=== PATIENT | female | born 1950 | race Two or more races ===

== ENCOUNTER 2017-07-27 13:25 | Outpatient (CLI) | payer OTHER ==
[2017-07-27 14:27] LABS: Hematocrit 43.3 % (36.0-47.0); Red Blood Cell (RBC) Count 5.12 mill/uL (4.20-5.40)
[2017-07-27 14:34] LABS: Prothrombin Time 23.8 SEC (12.0-14.7)
[2017-07-27 14:54] LABS: Anion Gap 13 mmol/L (10-20); BUN (Urea Nitrogen) 17 mg/dL (9.8-20.1); Calc. Creatinine Clearance 0 mL/min (70-130); Calcium 8.9 mg/dL (7.8-10.44); Carbon Dioxide 25 mmol/L (23-31); Chloride 106 mmol/L (98-107); Estimated GFR-MDRD 73
--- NOTE | 2017-07-27 15:16 | EKG ---
Test Reason : Blood Pressure : / mmHG Vent. Rate : 054 BPM Atrial Rate : 054 BPM P-R Int : 156 ms QRS Dur : 080 ms QT Int : 444 ms P-R-T Axes : 020 -04 030 degrees QTc Int : 421 ms Sinus bradycardia T wave abnormality, consider anterior ischemia Abnormal ECG Confirmed by LUPILLO WING ([id number]) on 07/27/2017 3:16:19 PM Referred By: LAKIA Confirmed By:LUPILLO WING
== END 2017-07-27 13:26 | disposition home or self-care (01) ==
LOC: LABBT 13:25
PROVIDERS: ATTEND Specialist
DX: Z01.818 Encounter for other preprocedural examination (principal); Z51.81 Encounter for therapeutic drug level monitoring; I48.91 Unspecified atrial fibrillation; Z79.01 Long term (current) use of anticoagulants
CPT/HCPCS: 80048; 85027; 85610; 85730; 93005; 93010

== ENCOUNTER 2017-07-30 05:56 | Observation (INO) | payer OTHER ==
[2017-07-27 13:44] VITALS: BMI 28.1
[2017-07-30] MEDS ORDERED: Heparin 10,000 UNITS/1 ML VIAL ONE ×2 (06:56→07:24)
[2017-07-30] MEDS ORDERED: Phenylephrine 10 MG/NS 250 ML 250 ML ONE (07:10)
[2017-07-30] MEDS ORDERED: Fentanyl 100 MCG/2 ML VIAL ONE (07:10)
[2017-07-30] MEDS ORDERED: Promethazine HCl 25 MG/ML VIAL ONE (07:10)
[2017-07-30] MEDS ORDERED: Protamine Sulfate 50 MG/5 ML VIAL ONE (07:24)
[2017-07-30] MEDS ORDERED: Furosemide 40 MG/4 ML VIAL ONE (07:24)
[2017-07-30] MEDS ORDERED: Midazolam HCl 2 mg/2 ml Vial ONE (07:24)
[2017-07-30] MEDS ORDERED: Propofol 200 MG/20 ML VIAL ONE (08:11)
[2017-07-30] MEDS ORDERED: ePHEDrine/0.9% NaCl/PF SYRINGE 50 mg/10 ml ONE (08:11)
[2017-07-30] MEDS ORDERED: Ondansetron HCl/PF 4 MG/2 ML Vial ONE (08:11)
[2017-07-30] MEDS ORDERED: Glycopyrrolate 0.2 MG/ML 5 ML SYRINGE ONE (08:11)
[2017-07-30] MEDS ORDERED: Dexamethasone 20 MG/5 ML VIAL ONE (08:11)
[2017-07-30] MEDS ORDERED: PHENYLEPHRINE-NS 100 MCG/ML 10 ML SYRINGE ONE (08:11)
[2017-07-30] MEDS ORDERED: Isoproterenol 0.2 MG/1 ML AMP ONE (09:57)
[2017-07-30] MEDS ORDERED: Famotidine/PF 20 mg/2ml Vial ONE (10:40)
[2017-07-30] MEDS ORDERED: Silver Sulfadiazine 1% Cream 50 GM JAR TOP PRN (11:34)
[2017-07-30] MEDS ORDERED: Temazepam 15 MG CAP PO PRN (11:34)
[2017-07-30] MEDS ORDERED: Bisacodyl 10 MG SUPP PR PRN (11:34)
[2017-07-30] MEDS ORDERED: Nitroglycerin 0.4 MG TAB (25 Tab Bottle) SL PRN (11:34)
[2017-07-30] MEDS ORDERED: Acetaminophen 325 MG TAB PO PRN (11:34)
[2017-07-30] MEDS ORDERED: Mag-Al 1200 mg/1200 mg/30 ML UDCUP PO PRN (11:34)
[2017-07-30] MEDS ORDERED: diphenhydrAMINE 25 MG CAP PO PRN (11:34)
[2017-07-30] MEDS ORDERED: Ondansetron HCl/PF 4 MG/2 ML Vial IVP PRN (11:34)
[2017-07-30] MEDS ORDERED: Bisacodyl 5 MG TAB PO PRN (11:34)
[2017-07-30] MEDS ORDERED: Acetaminophen 500 MG TAB PO PRN (11:36)
[2017-07-30] MEDS: Sucralfate 1 GM TAB PO SCH ×3 (14:40→20:17)
[2017-07-30] MEDS: traMADol HCl 50 MG TAB PO PRN (15:25)
[2017-07-30] MEDS ORDERED: Morphine 2 MG/ML SYRINGE SLOW IVP PRN (16:07)
[2017-07-30] MEDS ORDERED: Dronedarone HCl 400 MG TAB PO SCH (17:00)
[2017-07-30] MEDS ORDERED: Warfarin Sodium 5 MG TAB PO SCH ×2 (17:00→21:00)
[2017-07-30] MEDS: Dronedarone HCl 400 MG TAB PO SCH (20:12)
[2017-07-30] MEDS ORDERED: Escitalopram Oxalate 10 mg Tablet PO SCH (21:00)
--- NOTE | 2017-07-30 22:33 | CCL ---
PROCEDURE: Ablation for atrial fibrillation. PREOPERATIVE DIAGNOSIS: Paroxysmal atrial fibrillation. PROCEDURE DETAILS: The patient came to the EP lab in the postabsorptive state. Informed consent wa s obtained. A timeout was called. The patient was sedated by a member of the Anesthesia staff. On ce the patient was adequately sedated, the left and right femoral regions were prepped and draped in the usual sterile fashion as was the right internal jugular vein using ultrasound guidance, access was obtained x2 in the right femoral vein and x1 in the left femoral vein as well as in the right ju gular vein. A 10 [place] sheath was placed in the left femoral vein. Two 8 [place] sheaths were plac ed in the right femoral vein and a 7 [place] sheath was placed in the right internal jugular vein. A 20 pole catheter was placed from the right internal jugular catheter with the distal 10 poles advanc ed into the coronary sinus for left atrial pacing and recording. The proximal 10 poles were in the right atrium. Intracardiac ultrasound catheter was advanced from the left femoral vein into the hear t for intraprocedural monitoring and guidance. Following this, the double transseptal was performed by exchanging the two 8 [place] sheaths for a long sheaths and LA multipurpose sheath was utilized a s well as a SL0 sheath. Prior to performing a transseptal puncture, the patient was given a bolus o f heparin. The transseptal puncture was guided by intracardiac ultrasound. A 3 dimensional geometr y was made of the left atrium using the circular mapping catheter and with the Carto system. Potenti als were recorded in all four of the pulmonary veins. Following this, radiofrequency was applied to the antrum of the pulmonary veins anteriorly and posteriorly with care to monitor the esophageal lo cation, a temperature when posterior and keep the catheter moving. Ablation was performed until iso lation of all four pulmonary veins was documented. After this, ablation was initiated in the front end mechanic ior wall in order to ablate the posterior wall. However, this could not be isolated because of esoph ageal temperature concerns. Following this, the patient was given 20 mcg of isuprel for approximate ly 10 minutes and did not have any extra pulmonary vein firing. The right upper pulmonary vein recon nected and required further radiofrequency to be delivery. The catheter was then placed in the left ventricle for LV pacing and recording and along His bundle. Baseline intervals were cycled length 890, CT interval 180, QRS 74, QT 429, AH was 127 and HV was 41 milliseconds. A total RF time was 20 10 seconds or 33-1/2 minutes. Catheters were withdrawn. Protamine was given and hemostasis obtaine d with manual pressure. Patient also given 20 mg of Lasix for diuresis. The patient tolerated the procedure well and was discharged from the EP lab in stable condition. COMPLICATIONS: None acute. PROCEDURE PERFORMED: Ablation for atrial fibrillation which includes three dimensional mapping drug infusion and LV pacing and LA pacing and recording, ablation of pulmonary veins, intracardiac echo, transseptal puncture and EP study. CONCLUSIONS: 1. Paroxysmal atrial fibrillation. 2. Successful radiofrequency ablation for paroxysmal atrial fibrillation. RECOMMENDATIONS: Patient will be at bed rest and she will be watched overnight and will follow up w ith electrophysiology in 6-8 weeks. She will continue on anticoagulant therapy for now.
[2017-07-31 07:18] VITALS: TEMP 98.3
[2017-07-31] MEDS: Sucralfate 1 GM TAB PO SCH ×2 (09:18→12:39)
[2017-07-31] MEDS: Dronedarone HCl 400 MG TAB PO SCH (09:20)
[2017-07-31] MEDS: traMADol HCl 50 MG TAB PO PRN (11:01)
[2017-07-31 11:23] VITALS: BP 104/55
[2017-07-31] MEDS ORDERED: Warfarin Sodium 2.5 MG TAB PO SCH (21:00)
--- NOTE | 2017-08-01 10:03 | DIS ---
DATE OF ADMISSION: 07/30/2017 DATE OF DISCHARGE: 07/31/2017 ADMISSION DIAGNOSES: 1. Paroxysmal atrial fibrillation, previously on Multaq. 2. Oral anticoagulation with warfarin. 3. Status post venous isolation procedure on 07/30/2017. HOSPITAL COURSE: Ms. Luke underwent elective EP procedure as noted above by Dr. Loi Berrios. She tolerated the procedure well. Subsequently, she remains stable. PHYSICAL EXAMINATION: VITAL SIGNS: Blood pressure is 104/55, heart rate 72, respirations 16, temperature 98.3 degrees Fah renheit. GENERAL: Alert and oriented woman, in no apparent distress. NECK: Supple. Jugular veins not distended. CHEST: Coarse with no crackles. CARDIOVASCULAR: Heart sounds are regular to rate and rhythm. No murmur or gallop. ABDOMEN: Benign. Bowel sounds positive. EXTREMITIES: Lower extremities without edema, clubbing, or cyanosis. Pulses are adequate. NEUROLOGIC: Patient is nonfocal. MUSCULOSKELETAL EXAM: No joint swelling or deformities. SKIN: Without rash. DATABASE: The EKG was reviewed, reveals sinus rhythm. Telemetry strips reveal sinus with no recurr ence of atrial fibrillation is documented. INR today is 2.0. ASSESSMENT AND PLAN: Ms. Luke is a pleasant 67-year-old woman who had paroxysmal atrial fibrill ation, underwent pulmonary venous isolation procedure and remained stable on the subsequent day. Sh carlos has minor coughing, but no other signs of true bronchitis. She is told to continue her Coumadin, at previous dose. I prescribed her Carafate for the next 2 weeks and also proton pump inhibitor, Pr otonix 40 mg daily. She has requested to follow up in 6 weeks in our office. Thank you again for allowing me to participate in the care of this patient.
--- NOTE | 2017-08-03 13:15 | EKG ---
Test Reason : PREOP Blood Pressure : / mmHG Vent. Rate : 059 BPM Atrial Rate : 059 BPM P-R Int : 166 ms QRS Dur : 084 ms QT Int : 450 ms P-R-T Axes : 005 -01 010 degrees QTc Int : 445 ms Sinus bradycardia T wave abnormality, consider anterior ischemia Abnormal ECG Confirmed by LUPILLO WING ([id number]) on 08/03/2017 1:15:16 PM Referred By: LAKIA Confirmed By:LUPILLO WING
--- NOTE | 2017-08-03 13:20 | EKG ---
Test Reason : POST EP/ABLATION Blood Pressure : / mmHG Vent. Rate : 086 BPM Atrial Rate : 086 BPM P-R Int : 194 ms QRS Dur : 080 ms QT Int : 386 ms P-R-T Axes : 053 -03 041 degrees QTc Int : 461 ms Normal sinus rhythm Abnormal ECG Confirmed by LUPILLO WING ([id number]) on 08/03/2017 1:20:01 PM Referred By: LAKIA Confirmed By:LUPILLO WING
--- NOTE | 2017-08-03 15:55 | EKG ---
Test Reason : Blood Pressure : / mmHG Vent. Rate : 069 BPM Atrial Rate : 069 BPM P-R Int : 180 ms QRS Dur : 078 ms QT Int : 436 ms P-R-T Axes : 044 036 053 degrees QTc Int : 467 ms Normal sinus rhythm Normal ECG Confirmed by LUPILLO WING ([id number]) on 08/03/2017 3:55:11 PM Referred By: LAKIA Confirmed By:LUPILLO WING
== END 2017-07-31 14:10 | disposition home or self-care (01) ==
LOC: CCL 05:56 → 2SW 11:05
PROVIDERS: ADMIT Specialist; ATTEND Specialist
DX: I48.0 Paroxysmal atrial fibrillation (principal); K21.9 Gastro-esophageal reflux disease without esophagitis; Z98.890 Other specified postprocedural states; Z88.6 Allergy status to analgesic agent; Z91.018 Allergy to other foods; Z88.2 Allergy status to sulfonamides; Z88.5 Allergy status to narcotic agent; Z88.8 Allergy status to other drugs, medicaments and biological substances; Z91.040 Latex allergy status; Z79.01 Long term (current) use of anticoagulants; Z87.891 Personal history of nicotine dependence
CPT/HCPCS: 36415; 76942; 85347; 85610; 93005; 93010; 93613; 93622; 93623; 93656; 93657; 93662; 96374; A4216; C1731; C1759; C1769; G0378; J1100; J1644; J1940; J2250; J2270; J2405; J2550; J2704; J2720; J3010; S0028

== ENCOUNTER 2017-09-15 07:52 | Emergency (ER) | payer OTHER ==
[2017-09-15 08:32] LABS: #Eosinphils 0.1 thou/uL (0.0-0.7); #Lymphocytes 2.1 thou/uL (1.20-3.40); #Monocytes 0.4 thou/uL (0.11-0.59); #Neutrophils 3.2 thou/uL (1.40-6.50); %Basophils 0.8 % (0.0-1.0); %Eosinophils 1.9 % (0.0-10.0); %Lymphocytes 35.8 % (21.0-51.0); %Monocytes 6.6 % (0.0-10.0); Hematocrit 36.5 % (36.0-47.0); Mean Platelet Volume 7.6 fL (7.4-10.4); Red Blood Cell (RBC) Count 4.31 mill/uL (4.20-5.40); White Blood Cell (WBC) Count 5.9 thou/uL (4.8-10.8)
[2017-09-15 08:38] LABS: PTT 38.2 SEC (22.9-36.1)
--- NOTE | 2017-09-15 08:45 | RAD ---
PORTABLE CHEST 1 VIEW: Date: 09/15/17 Time: 0828 hours HISTORY: Chest pain. FINDINGS: Comparison made with exam of 02/12/17. The heart size is normal. The aorta is tortuous. The lungs are well expanded without focal areas of c onsolidation, pneumothorax, or pleural effusions. IMPRESSION: No radiographic evidence of acute cardiopulmonary process. POS: OFF
[2017-09-15 08:51] LABS: ALT (SGPT) 17 U/L (8-55); AST (SGOT) 16 U/L (5-34); Alkaline Phosphatase 119 U/L (40-150); Anion Gap 12 mmol/L (10-20); BUN (Urea Nitrogen) 17 mg/dL (9.8-20.1); Bilirubin, Total 0.3 mg/dL (0.2-1.2); Calc. Creatinine Clearance 0 mL/min (70-130); Calcium 8.7 mg/dL (7.8-10.44); Carbon Dioxide 24 mmol/L (23-31); Chloride 109 mmol/L (98-107); Estimated GFR-MDRD 76; Globulin 3.1 g/dL (2.4-3.5); Protein, Total 6.7 g/dL (6.0-8.3)
[2017-09-15 08:56] LABS: Troponin I Less than 0.010 ng/mL (< 0.028)
[2017-09-15] MEDS ORDERED: Nitroglycerin 0.4 MG TAB (25 Tab Bottle) ONE (09:05)
[2017-09-15 11:23] LABS: Troponin I Less than 0.010 ng/mL (< 0.028)
--- NOTE | 2017-09-19 17:06 | EKG ---
Test Reason : CP Blood Pressure : / mmHG Vent. Rate : 060 BPM Atrial Rate : 060 BPM P-R Int : 190 ms QRS Dur : 080 ms QT Int : 426 ms P-R-T Axes : 041 002 020 degrees QTc Int : 426 ms Normal sinus rhythm Normal ECG Confirmed by MAX MANCINI ([id number]), editor school photograph KAILEE BOLDEN ([id number]) on 09/19/2017 5:06:15 PM Referred By: ADDIS Confirmed By:MAX MANCINI
--- NOTE | 2017-09-19 17:07 | EKG ---
Test Reason : Blood Pressure : / mmHG Vent. Rate : 067 BPM Atrial Rate : 067 BPM P-R Int : 170 ms QRS Dur : 074 ms QT Int : 398 ms P-R-T Axes : 046 004 034 degrees QTc Int : 420 ms Normal sinus rhythm Normal ECG Confirmed by MAX MANCINI ([id number]), editor index KAILEE BOLDEN ([id number]) on 09/19/2017 5:06:59 PM Referred By: Confirmed By:MAX MANCINI
== END 2017-09-15 12:25 | disposition home or self-care (01) ==
LOC: ERS 07:52
DX: R07.9 Chest pain, unspecified (principal); I48.91 Unspecified atrial fibrillation; K21.9 Gastro-esophageal reflux disease without esophagitis; F41.9 Anxiety disorder, unspecified; F32.9 Major depressive disorder, single episode, unspecified; G47.30 Sleep apnea, unspecified; J45.909 Unspecified asthma, uncomplicated; K58.9 Irritable bowel syndrome, unspecified; Z79.01 Long term (current) use of anticoagulants; Z85.51 Personal history of malignant neoplasm of bladder
CPT/HCPCS: 36415; 71010; 80053; 82553; 84484; 85025; 85610; 85730; 93005

== ENCOUNTER 2018-02-18 14:19 | Outpatient (CLI) | payer OTHER ==
--- NOTE | 2018-02-18 15:11 | ULT ---
THYROID ULTRASOUND: COMPARISON: 08/14/17. HISTORY: Thyroid nodule. TECHNIQUE: Multiplanar cobb scale and color Doppler images were obtained in a thyroid ultrasound. FINDINGS: There is a mixed solid/cystic nodule in the right lobe of the thyroid. This currently measures 2.3 x 2.0 x 1.8 cm in size. There is a solid nodule in the left lobe of the thyroid measuring 8 mm in siz e. These nodules are well circumscribed without suspicious calcifications. The thyroid lobes measur e 3.5 and 3.3 cm in length on the right and left, respectively. IMPRESSION: Bilateral thyroid nodules. The largest nodule is seen in the right thyroid lobe and has decreased in size compared to the prior examination. This is a TRADS category 3 lesion. Followup of this nodule at 1, 3, and 5 years is recommended. A 1-year followup has already been performed. POS: [facility]
== END 2018-02-18 14:20 | disposition home or self-care (01) ==
LOC: ULT 14:19
PROVIDERS: ATTEND Specialist
DX: E04.9 Nontoxic goiter, unspecified (principal); E04.2 Nontoxic multinodular goiter
CPT/HCPCS: 76536; 88121

== ENCOUNTER 2018-03-21 19:56 | Emergency (ER) | payer OTHER ==
[2018-03-21] MEDS ORDERED: Ketorolac Tromethamine 30 MG/ML VIAL ONE (21:09)
== END 2018-03-21 21:35 | disposition home or self-care (01) ==
LOC: ERS 19:56
DX: H65.91 Unspecified nonsuppurative otitis media, right ear (principal); F32.9 Major depressive disorder, single episode, unspecified; K58.9 Irritable bowel syndrome, unspecified; K21.9 Gastro-esophageal reflux disease without esophagitis; G47.30 Sleep apnea, unspecified; J45.909 Unspecified asthma, uncomplicated; Z79.82 Long term (current) use of aspirin; Z79.899 Other long term (current) drug therapy; Z85.51 Personal history of malignant neoplasm of bladder
CPT/HCPCS: 96372; J1885